=== PATIENT | female | born 1945 | race Caucasian/White ===

== ENCOUNTER 2016-11-26 08:16 | Day surgery (SDC) | payer MEDICARE ==
[~2016-11-26] VITALS: Ht 170.2 cm; Wt 65.8 kg
[2016-11-26 09:36] LABS: BASOPHILS 0.2 % (0.0-2.0); EOSINOPHILS 1.8 % (0-7); HEMATOCRIT 40.7 % (36.0-48.0); HEMOGLOBIN 13.2 g/dL (12-16); IMMATURE GRANULOCYTES 0.2 % (0-5); LYMPHOCYTES 33.1 % (15-50); MCH 31.7 pg (26.0-34.0); MCHC 32.4 g/dL (31.0-37.0); MCV 97.6 fL (80.0-100.0); MEAN PLATELET VOLUME 11.4 fL (7.4-10.4); MONOCYTES 10.8 % (2-11); NEUTROPHILS 53.9 % (40-80); PLATELET COUNT 135 10x3/uL (130-400); RBC 4.17 10x6/uL (4.00-5.40); RDW 15.8 % (11.5-14.5); WBC 5.5 10x3/uL (4.8-10.8)
[2016-11-26 09:51] LABS: ANION GAP 12.6 mmol/L (8-16); CALCIUM 9.3 mg/dL (8.5-10.1); CARBON DIOXIDE 28.8 mmol/L (21.0-32.0); CREATININE - SERUM 3.4 mg/dL (0.6-1.3); POTASSIUM - SERUM 3.4 mmol/L (3.5-5.1)
[2016-11-26 10:10] LABS: APTT 28.2 SECONDS (22.8-39.4); INR 1.05 (0.85-1.17); PROTIME 13.5 SECONDS (11.6-15.0)
[2016-11-26] MEDS ORDERED: NORVASC10 MG PO (10:36)
[2016-11-26] MEDS ORDERED: LASIX80 MG PO (10:38)
[2016-11-26] MEDS ORDERED: TUMS500 MG PO (10:39)
[2016-11-26] MEDS ORDERED: LIPITOR20 MG PO (10:40)
[2016-11-26] MEDS ORDERED: VENOFER100 MG/5 M IV (10:42)
[2016-11-26 11:19] VITALS: Ht 170.2 cm; Wt 65.8 kg
[2016-11-26 18:35] VITALS: BP 165/63
--- NOTE | 2016-11-26 18:38 | NUR ---
BUPRENEX ADMIN FOR PAIN. ZOFRAN ADMIN FOR NAUSEA
--- NOTE | 2016-11-26 18:39 | NUR ---
RECEIVED VIA STRETCHER TO ROOM WITH SLING TO LEFT ARM. SALINE LOCK SEEN TO RIGHT HAND. DENIES NEEDS AT PRESENT TIME. SPOUSE IS AT BEDSIDE. WILL MONITOR.
--- NOTE | 2016-11-26 19:30 | NUR ---
RESTING QUIETLY IN BED WITH LEFT ARM IN SLING PER ORDERS LEFT UPPER AERM FISTULA NOTED. WILL PLACE UP ON PILLOW FOR C & C. RT CHEST HEMESPLIT INTACT AND LOCKED. RT HAND SL INTACT AND PATENT WITH NO R/S NOTED AT SITE. HOB UP SR UP X2, C/L IN REACH. AT BEDSIDE FOR NIGHT, ASSISTING WITH CARE OF HIS . CONTINUE TO MONITOR.
[2016-11-26 20:00] VITALS: BP 128/55
[2016-11-27] VITALS: BP 130/68
[2016-11-27 04:00] VITALS: BP 124/65
--- NOTE | 2016-11-27 08:18 | NUR ---
AM ROUNDING DONE WITH PATIENT COMPLAINING OF SLIGHT PAIN TO LEFT ARM, IN SLING. RIGHT CHEST HEMISPLIT SEEN WITH DRY INTACT DRESSING. ON ROOM AIR. AT BEDSIDE. RIGHT HAND SEEN WITH SALINE LOCK. WILL CONTINUE TO MONITOR
[2016-11-27 08:32] VITALS: BP 156/76
--- NOTE | 2016-11-27 10:49 | NUR ---
RATIONALE FOR SCD'S EXPLAINED. REFUSED SCD'S
--- NOTE | 2016-11-27 13:11 | NUR ---
TO DIALYSIS VIA WHEELCHAIR.
[2016-11-27 13:41] VITALS: BP 155/77
--- NOTE | 2016-11-27 16:43 | NUR ---
RETURNS FROM DIALYSIS, STATES THAT PAIN IS BETTER. ASKED THAT SHE EAT SOME SUPPER AND THEN WE CAN DISCHARGE HER.
--- NOTE | 2016-11-27 18:39 | NUR ---
VERBAL AND WRITTEN DISCHARGE INSTRUCTIONS GIVEN TO PATIENT AND SPOUSE. SALINE LOCK REMOVED WITH CATH TIP INTACT. DISCHARGED HOME WITH SLING ON LEFT AND VIA WHEELCHAIR.
--- NOTE | 2016-12-03 14:04 | OP ---
PATIENT NAME: PAT HERNANDEZ MEDICAL RECORD: [id number] :49 LOCATION:D.OPS ADMISSION DATE: SURGEON: RENATO BARAKAT MD DATE OF OPERATION: 11/26/2016 REFERRING PHYSICIAN: Lily Coe MD. PREOPERATIVE DIAGNOSES: End-stage renal disease and dependence upon hemodialysis. OPERATION PERFORMED: Creation of a proximal radial artery to translocated basilic arterial venous fistula in the left upper extremity. SURGEON: Renato Barakat MD. ANESTHESIA: General per PULMONARY NURSE PRACTITIONER. PREOPERATIVE NOTE: Ms. Pat Hernandez is a 71-year-old white female patient from [place], [place], who has end-stage renal disease and is presently on dialysis with a tunneled central dialysis catheter. She requires long-term access and has poor peripheral veins. She is brought to the operating room to try to create a fistula in the left arm. DESCRIPTION OF PROCEDURE: Under anesthesia in supine position, the patient was prepped and draped in sterile manner. I examined her first after applying topical papaverine and a Cristobal drain as a proximal venous tourniquet, I examined it with ultrasound and found that there was what I thought a possibly an adequate cephalic vein at the wrist and that she would otherwise need a basilic vein fistula in the upper arm. I then made an incision and exposed the cephalic vein at the wrist in the radial artery and found both to be small and subsequently abandoned that approach and irrigated that wound with saline and then infiltrated with Marcaine 0.25% and closed the wound with interrupted inverted 3-0 Vicryl and running intracuticular 4-0 Monocryl and Dermabond glue. I then made an incision on the medial aspect of the arm with a hockey stick-shaped crossing from the medial aspect to the antecubital space and I exposed the distal brachial artery and its trifurcation and controlled the proximal radial artery and prepared it generally for anastomosis. The basilic vein was dissected from the upper forearm to the axilla. Tributaries were divided between Vicryl ties and Hemoclips and the vein was then ligated distally and transected. It was beveled and flushed with heparinized saline and hydrostatically dilated. The vein was then placed in a subcutaneous tunnel as close to the undersurface of the skin as I could make it with a Cinda tunneler and the vein was then anastomosed in to side of the proximal radial artery with running 7-0 Prolene. After opening the artery, it was flushed proximally and distally with heparinized saline and occluded proximally and distally with Silastic loops. This was the only anticoagulant used during the procedure. With completion of the suture line and release of the occluding loops and clamps, excellent flow was immediately established in the fistula. The wound was irrigated with saline and Ancef/gentamicin solution. It was infiltrated and irrigated with 0.25% Marcaine and then closed with interrupted inverted 3-0 Vicryl and a running intracuticular 4-0 Monocryl. Dermabond glue was applied and both wounds were then dressed with Maxorb Ag, Tegaderm and Cavilon skin prep. The patient was awakened from her general anesthetic and taken to the recovery room in stable condition. Blood loss during the procedure was insignificant and unreplaced. No drain was used. No surgical specimen was OPERATIVE REPORT [id number] JOSEPAT MOTTA submitted for histopathology and all sponges, instruments, and needles are accounted for. The patient will be discharged to home today and follow up with me in the office. She was given a prescription for hydrocodone with acetaminophen for pain and is advised to continue all of her preoperative medications, renal diet, et cetera. TRANSINT:[id number] Voice Confirmation ID: [id number] DOCUMENT ID: [id number] RENATO BARAKAT MD at 1404 CC: LILY COE MD [id number] DICTATION DATE: 12/01/16 1337 AUTOCLAVE OPERATOR: 12/01/16 1501 [facility] 11/27/16 [id number] [place] [address]
== END 2016-11-27 18:40 | disposition home or self-care (01) ==
LOC: D.OPS 08:16 → D.M2 18:23 → D.OPS 11-27 18:40
PROVIDERS: Internal Medicine Nephrology
DX: N18.6 End stage renal disease (principal); Z99.2 Dependence on renal dialysis